=== PATIENT | female | born 1935 | race Two or more races ===

== ENCOUNTER 2019-12-01 10:00 | Outpatient (CLI) | payer OTHER ==
[2019-12-01] MEDS ORDERED: CORTISPORIN EAR10 M1 OPHT (11:03)
== END 2019-12-01 12:00 | disposition home or self-care (01) ==
LOC: OFIC 805 10:00
PROVIDERS: ATTEND Otolaryngology
DX: H90.3 Sensorineural hearing loss, bilateral (principal); H61.23 Impacted cerumen, bilateral

== ENCOUNTER 2019-12-15 14:51 | Outpatient (CLI) | payer OTHER ==
[~2019-12-15 14:51] MED LIST: CORTISPORIN EAR10 M1 OPHT
== END 2019-12-15 15:15 | disposition home or self-care (01) ==
LOC: OFIC 805 14:51
PROVIDERS: ATTEND Otolaryngology
DX: H90.41 Sensorineural hearing loss, unilateral, right ear, with unrestricted hearing on the contralateral side (principal); H61.21 Impacted cerumen, right ear